=== PATIENT | female | born 1985 | race Caucasian/White ===

== ENCOUNTER 2024-11-17 06:16 | Day surgery (SDC) | payer OTHER, SELFPAY ==
--- NOTE | 2024-11-09 13:13 | HP.PCM.OB_ITS ---
History and Physical Date of Admission: 11/17/24 VIRTUAL VISIT HIstory and Physical This is a virtual visit using [employer] Zoom Video Visit. It required patient- provider interaction for the medical decision making as documented below. I have communicated my name and active licensure. The patient's identity and physical location were verified at the time of this visit. Either the patient or their legal representative personal service has been informed of the risks and benefits of -- and alternatives to -- treatment through a remote evaluation and consents to proceed with the evaluation remotely. ? Pre-Op History and Physical HPI: The patient is a 39 year old female presenting for pre-operative visit. She is scheduled for Hysteroscopy, D&C, myomectomy with symphion for AUB, submucosal fibroids, dysmenorrhea on 11/17/24 Procedure discussed along with risks, benefits and complications. Other alternatives discussed for management. Consent form signed? No. PAST MEDICAL HISTORY PAST MEDICAL HISTORY Diagnosis Date ? Anemia since childhood ? Asthma PFTs done in high school; was treated with Proventil HFA prn ? Chiari malformation type I (HCC) ? GERD (gastroesophageal reflux disease) ? Headache(784.0) ? Intramural, submucous, and subserous leiomyoma of uterus 08/29/2024 PAST SURGICAL HISTORY PAST SURGICAL HISTORY Procedure Laterality Date ? EGD TRANSORAL BIOPSY SINGLE/MULTIPLE 01/01/12 ? OPEN BIOPSY HEART ? PAST SURGICAL HISTORY OF 04/18/2015 Suboccipital craniectomy, C1 laminectomy, duraplasty, and tonsillar cauterization for decompression of Chiari malformation; use of intraoperative ultrasound; suboccipital cranioplasty for 3.0-cm defect CURRENT MEDICATIONS Current Outpatient Medications Medication Sig Dispense Refill ? soy protein (HEALTH SOURCE ORAL) Take by mouth. Hormonal support OTC magnesium, B vitamins herbal ? Norethindrone Acet-Ethinyl Est (MICROGESTIN ) 1.5-30 mg-mcg Take 1 tablet by mouth once daily. Take active pills only. Start a new pack every 3 weeks. 84 tablet 3 ? albuterol HFA (PROVENTIL HFA) 90 mcg/actuation inhaler Inhale 2 Puffs as instructed every 6 hours as needed for wheezing/shortness of breath. 1 Each 5 ? baclofen 20 mg tablet Take 1/2 to 1 tablet by mouth 3 times a day as needed for muscle spasms. 90 tablet 3 ? traZODone (DESYREL) 50 mg tablet Take 1-2 tablets by mouth daily at bedtime. 60 tablet 11 ? escitalopram oxalate (LEXAPRO) 20 mg tablet Take 1 tablet by mouth once daily. 90 tablet 3 ? hydrOXYzine HCl (ATARAX) 25 mg tablet Take 1 tablet by mouth once daily. 90 tablet 3 ? multivitamin tablet Take 1 tablet by mouth once daily. ? cholecalciferol, vitD3,/vit K2 (VITAMIN D3-VITAMIN K2) 250 mcg (10,000 unit)-45 mcg cap Take by mouth. ? OTSZMQQ-ZIHW-DVGEO-OREG-CAPRYL ORAL Take by mouth. ? fluticasone (FLONASE) 50 mcg/actuation nasal spray Use 1-2 Sprays in each nostril once daily. Rinse mouth after use. 1 Bottle 5 ? magnesium oxide (MAG-OX) 400 mg tablet Take 1 tablet by mouth once daily. 30 tablet 3 ? riboflavin, vitamin B2, (VITAMIN B-2) 100 mg tab Take 4 tablets by mouth once daily. 120 tablet 3 ? TENS unit and electrodes cmpk Per PT recommendations 1 Device 0 ? Ferrous Gluconate 324 mg (36 mg iron) tab Take 1 tablet by mouth once daily. No current facility-administered medications for this visit. ALLERGIES: Protonix [Pantoprazole Sodium] PERSONAL HISTORY: SOCIAL HISTORY Social History Tobacco Use ? Smoking status: Never ? Smokeless tobacco: Never Vaping Use ? Vaping status: Never Used Substance Use Topics ? Alcohol use: No ? Drug use: No FAMILY HISTORY: FAMILY HISTORY FAMILY HISTORY Problem Relation Age of Onset ? Hyperlipidemia Mother ? other (arryhtmia) Father ? other (gastroproesis) Sister TWIN SISTER ? other (Other) Sister tachycardia ? Breast Cancer Maternal Grandmother ? Uterine Cancer Maternal Grandmother ? Heart Attack Maternal Grandfather REVIEW OF SYMPTOMS: negative except as noted above PHYSICAL EXAMINATION: VITALS: Last menstrual period 03/11/2024. GENERAL: The patient is well nourished, well hydrated in no acute distress. , The patient is oriented to time, place, and person. NECK: full range of motion Indication Pelvic pain, midline Impression The uterus is anteverted and measures 95 mm x 58 mm x 61 mm. The myometrium is heterogenous. The endometrial thickness is 10.6 mm. The endometrium is irregular and contains a submucosal fibroid. 1. Anterior lower uterine segment intramural fibroid measures 21 mm x 18 mm x 21.. 2. Anterior submucous fibroid measures 26 mm x 27 mm x 32 mm. 3. Anterior right intramural fibroid measures 27 mm x 17 mm x 18 mm. 4. Anterior fundal right pedunculated fibroid measures 19 mm x 17 mm x 16 mm. 5. Anterior fundal right pedunculated fibroid measures 19 mm x 17 mm x 19 mm. The right ovary measures 28 mm x 24 mm x 18 mm. The left ovary measures 27 mm x 18 mm x 14 mm. There is trace free fluid visualized. Technique: Three dimensional imaging was created on a dedicated stand-alone 3D workstation with images created and archived, and supervised and reviewed by the interpreting physician utilizing images from a US Scan performed on 08/29/24. Recommendations Consider SIS for further evaluation of endometrial cavity if clinically indicated. Consider endometrial sampling. Fibroid uterus. Clinical correlation is recommended. IMPRESSION: 39yo female with Dysmenorrhea, fibroid uterus, AUB PLAN: Hysteroscopy, D&C, myomectomy with symphion Pt has been counseled on risks/benefits and alternatives of surgery including but not limited to anesthesia, bleeding, infection, injury to pelvic structures including bowel, bladder, ureters and vessels. Pt wishes to proceed with surgery at this time. Will sign consent day of surgery- consent was filled out and signed by myself All questions answered Pre and post op instructions reviewed I have reviewed and updated past medical and surgical history, medications and allergies
[2024-11-17] VITALS (11 sets, daily range): BP systolic 98–149; BP diastolic 79–91; PULSE 79–102; RESP 16; TEMP 36.2–36.9; O2SAT 95–100; BMI 37.4
[2024-11-17 06:43] LABS: Internal QC Validated? YES +Cl - CLEAR BKGD; Pregnancy, Urine Negative Negative
--- NOTE | 2024-11-17 07:03 | PRE.ANES_ITS ---
ASA Classification* ASA Classification ASA Classification: 3 Assessment & Plan Anesthesia* Anesthesia Assessment Anesthesia Assessment: Discussed sedation and/or anesthesia options, risks, benefits, and alternatives with patient/parents/legal guardian/POA. Questions invited. The patient/parents/legal guardian/POA seems to understand and agrees to proceed with anesthesia plan. Reviewed the physical assessment, medical history, allergy history and patient home medications list prior to surgery/procedure/anesthetic and documented any changes. Performed airway and anesthesia risk assessments. Anesthesia Type Anesthesia Type: MAC History Source History Obtained from:: Patient and Chart Anesthesia Focused Assessment* Temperature: 98.5 F Pulse Rate: 94 Blood Pressure: 149/91 Respiratory Rate: 16 Pulse Ox: 100 Oxygen Delivery Method: Room Air Airway Assessment Mouth opens: 2 cm Mallampati Score: IV Teeth Condition: Intact Neck Range of motion (ROM): Limited ROM (Slight decreased extension) Focused Labs Anesthesia Preop lab: CBC CHEMISTRY COAG Urine Test Negative Negative 11/17/24 06:25 Pre-Assessment Diagnosis/Proposed Procedure Planned Operative Procedure(s): HYSTEROSCOPY D&C MYOMECTOMY Anesthesia History 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 When Was Last Pacemaker Check QUESTION #4 FULL TEXT: You/Your Family Experience fever (hyperthermia) with Anesthesia Last Oral Intake Last Oral intake: Last Oral Intake NPO since 04:00 11/17/24 06:39 Meds taken in AM with sips of water? Meds patient instructed to take am of surgery Any additional information?: Yes NPO since: 04:00 (Patient had some water at 4 AM.) PONV PONV - streetcar repairer helper: PONV - streetcar repairer helper Female Yes 11/09/24 08:23 HX of Motion Sickness No 11/09/24 08:23 HX of N/V After Surgery No 11/09/24 08:23 Non-Smoker Yes 11/09/24 08:23 Duration of Surgery greater No 11/09/24 08:23 than 60 minutes Number of Risk Factors 2 11/09/24 08:23 PONV Score Moderate Risk 11/09/24 08:23 Height & Weight Height & Weight: Anesthesia: Height & Weight Height 5 ft 11/17/24 06:39 Weight: 87 kg 11/17/24 06:39 Body Mass Index (BMI) 37.4 11/17/24 06:39 Respiratory Assessment Respiratory Assessment - streetcar repairer helper: Respiratory Tract Infection Hx - streetcar repairer helper Hx Respiratory Tract Infection No 11/09/24 08:23 Any additional information?: Yes Hx Respiratory Tract Infection: Yes (Patient is recovering from the flu. Residual cough and runny nose.) STOP Sleep Apnea STOP Sleep Apnea - streetcar repairer helper: STOP Sleep Apnea - streetcar repairer helper Hx Hypertension No 11/09/24 08:23 Hx Sleep Apnea No 11/09/24 08:23 CPAP BIPAP Do you snore loudly (louder No 11/09/24 08:23 than talking or can be heard Do you often feel tired/ No 11/09/24 08:23 fatigued/ sleepy during daytime? Has anyone observed you stop No 11/09/24 08:23 breathing during sleep? STOP Results Negative 11/09/24 08:23 QUESTION #5 FULL TEXT : Do you snore loudly (louder than talking or can be heard through closed doors)? Tobacco Use History Tobacco Use History - streetcar repairer helper: Tobacco Use History - streetcar repairer helper Tobacco Use Smoking Status Never smoker 11/09/24 08:23 Hx Tobacco Use No 11/09/24 08:23 Years Smoking Packs Smoked per Day Smoking Cessation Date was within the last 15 years Hx Smoking Cessation Date Hx Smoking Cessation Counseling Hematologic Medial History Hematologic Hx - streetcar repairer helper: Hematologic Medical Hx - biological technical officer Hx of Blood Transfusion No 11/09/24 08:23 Hx of Transfusion in last 3 No 11/09/24 08:23 Months Date of Last Transfusion (if within last 3 months) Ever experience any problems No 11/09/24 08:23 with transfusion(s)? Specify any problems Hx of Preganancy in last 3 No 11/09/24 08:23 Months Nurse Filling Out Transfusion DSCHRIBER 11/09/24 08:23 & Questions: Date: 11/09/24 11/09/24 08:23 Time: 08:24 11/09/24 08:23 Patient unable to answer at this time (ie. confused, unrespo /Reproduction History /Reproductive History - streetcar repairer helper: /Reproductive Hx- streetcar repairer helper Hx Now No 11/09/24 08:23 Gestational Age (in weeks): EDC: Hx Hx Para Hx Section SAB No 11/09/24 08:23 PFSH Medical History Wears glasses Depression Anxiety Low iron Back pain Syncope Gastric reflux Non-smoker Asthma Chiari malformation type I Home Medications ?Medication ?Instructions ?Recorded ?Last Taken ?Type albuterol sulfate 90 mcg/actuation 2 puff inhalation Q6H PRN PRN 11/09/24 Unknown History aerosol inhaler wheezing escitalopram oxalate 20 mg tablet 20 mg PO DAILY 11/09/24 Unknown History famotidine 20 mg tablet (Pepcid AC) 20 mg PO DAILY PRN GERD 11/09/24 Unknown History ferrous sulfate 324 mg (65 mg 324 mg PO DAILY 11/09/24 Unknown History iron) tablet,delayed release hydroxyzine HCl 25 mg tablet 25 mg PO DAILY 11/09/24 Unknown History norethindrone acetate 1.5 1 tab PO DAILY 11/09/24 Unknown History mg-ethinyl estradiol 30 mcg tablet (Microgestin) Allergy/AdvReac Type Severity Reaction Status Date / Time pantoprazole (From Protonix) AdvReac Intermediate Nausea Verified 11/17/24 06:36 Surgical History History of esophagogastroduodenoscopy (EGD) History of surgical closure of patent foramen ovale (PFO) Hx of brain surgery Social History Smoking Status: Never smoker Review of Systems (Anesthesia) ROS Narrative System reviewed and no additional complaints, except as documented.
--- NOTE | 2024-11-17 07:30 | EMB_PTH ---
PATIENT: VIOLA ALFARO [place] [facility] [id number] AGE/SX: 39/F ROOM: RE11/17/[address]: Dr. Teagan Ragland, MDDOB: 1985 BED: DIS: 11/17/2024 SPEC #: [id number] RECD: 11/17/24 10:41 STATUS: STEFANIE RESherri #: [id number] CAESAR: 11/17/24 07:[address]: Teagan Ragland DEPT: SURGICAL PATHOLOGY RECD BY: Carmela Guerrero ENTERED: 11/17/24 11:47 SP TYPE: ENDOM BX/C OTHR DR: Dr. Leyla Solorzano MD Tissues: Endometrium, NOS Procedures: Surgery Specimen Level IV HEADER OPERATION: D&C, polypectomy PRE-OP DIAGNOSIS: Abnormal uterine bleeding, submucosal fibroids, dysmenorrhea TISSUE SUBMITTED: Submucosal fibroid, endometrial curettings, endometrial polyp MICROSCOPIC DIAGNOSIS Submucosal fibroid, endometrial curetting and endometrial polyp, D&C and polypectomy: Fragments of leiomyoma. Dyssynchronous endometrium consisting of proliferative endometrium, mildly disordered proliferative endometrium and weakly secretory endometrium. See comment. 11/20/2024 COMMENT A few fragments of endometrial tissue show polypoid appearance, may represent fragments of benign endometrial polyp. MICROSCOPIC DESCRIPTION Slides are reviewed. GROSS DESCRIPTION Received in fixative is one container labeled with the patient's name and designated Submucosal fibroid, endometrial curetting and endometrial polyp. The specimen consists of multiple fragments of indurated tissue measuring in aggregate 7.5 x 3.0 x 0.6cm. The entire specimen is submitted in six cassettes. 11/17/2024 TC:1 CPT:83076
--- NOTE | 2024-11-17 08:13 | OP.PCM_ITS ---
Operative Report (Standard) Operative Information Date of Procedure: 11/17/24 Pre-Operative Diagnosis: AUB, Submucosal fibroid, dysmenorrhea Post-Operative Diagnosis: same, endometrial polyps Surgery/Procedure Performed: hysteroscopy, D&C, Polypectomy, Myomectomy hospice care sales consultant: No Type of Anesthesia: MAC RN Documented Start/Stop Times: Operation Date: 11/17/24 07:30 Case Time Into Pre-Op 11/17/24 06:22 Out of Pre-Op 11/17/24 07:21 Anesthesia Start 11/17/24 07:26 Into Room 11/17/24 07:26 Procedure Start 11/17/24 07:40 Procedure End 11/17/24 08:13 Procedure Start Time: 07:40 Procedure Stop Time: 08:13 Select all DRAINS/GRAFTS/IMPLANTS that apply: None Estimated Blood Loss: <5cc Specimen collected: Yes Description of specimen(s) removed: endometrial curettings, endometrial polyps, submucosal fibroids Description of surgery: Informed consent was obtained the patient was taken the operating room she was placed in supine position. She was given anesthesia. She was then placed in the [facility] where she was prepped and draped in the normal sterile fashion. At this time the open reese was placed in the posterior fornix of vagina. Single-tooth tenaculum was used to gently grasp the anterior lip the cervix. At this time the uterine cavity was sounded to approximately 7 cm. Gentle dilatation was performed once adequate dilatation of the cervix was achieved the hysteroscope using normal saline as a distention medium was placed. Tubal ostia visualized. multiple submucosal fibroids and endometrial polyps noted- Symphion resecting device used to obtain endometrial curettings and to perform polypectom and myomectomy. the largest fibroid was approximately 3cm - appeared that i was able to remove it to the base. Tissue will be sent to pathology for evaluation. cavity remained intact. there was a lot of fluid leaking to the bag and onto the floor from the cervix. estimated fluid deficit 1250cc. Tenaculum removed. Good hemostasis. Instrument, lap count correct x 2. Vaginal Sweep was negative. Surgical Findings: multiple submucosal fibroids- largest approximately 3cm. multiple endometrial polyps Complications Complications: No Admit VTE Documentation VTE Present on Admission: Yes VTE Mechan Device Prophylaxis: SCD's VTE Pharm Prophylaxis ordered?: No
--- NOTE | 2024-11-17 08:19 | PCM.DC ---
Discharge Instructions Diet Discharge Diet: No restrictions DC O2, CPAP, BIPAP needs Home O2 Discharge instructions: No Dressing / Incision May resume sexual activity in: 1 week Dressing / Incision Call your doctor if you observe: Fever of 101 or Higher, Inability to urinate, Using more than 1 pad per hour and Uncontrolled pain Follow Up Care Please Follow Up With: Teagan Ragland MD When: not needed unless concerns- please call [phone], We will call with pathology results Test Results: Test results from this visit will be discussed in further detail at your follow-up appointment, if applicable. Discharge Plan Admission Attending Provider: Teagan Ragland Primary Care Provider: Leyla Solorzano Instructions Print Language: Moroccan Discharge Orders/Prescriptions Prescriptions: No Action hydroxyzine HCl 25 mg tablet 25 mg PO DAILY escitalopram oxalate 20 mg tablet 20 mg PO DAILY ferrous sulfate 324 mg (65 mg iron) tablet,delayed release (DR/EC) 324 mg PO DAILY norethindrone ac-eth estradiol [Microgestin 1.5/30 (21)] 1.5-30 mg-mcg tablet 1 tab PO DAILY albuterol sulfate 90 mcg/actuation HFA aerosol inhaler 2 puff INHALATION Q6H PRN PRN (Reason: wheezing) famotidine [Pepcid AC] 20 mg tablet 20 mg PO DAILY PRN (Reason: GERD) Referrals / Follow Up: Leyla Solorzano MD [Primary Care Provider] - Disposition Disposition (needs filled in before D/C Order can be placed): Home, Self Care
--- NOTE | 2024-11-17 08:40 | PCM.POST.ANE ---
Anesthesia: Postop Eval I Current Vital Signs Temperature: 97.8 F Pulse Rate: 88 Blood Pressure: 136/84 Respiratory Rate: 16 Pulse Ox: 97 Assessment Airway patent: Yes Spontaneous unlabored respirations: Yes nausea: No Vomiting: No Anesthesia Complication: No Fluid Hydration Crystalloid volume administer (ml): 0 Total IV fluid infused: 0 Progress Note Anesthesia document: Postop Eval 1 completed: Yes
[2024-11-17] MEDS: 0.9% Normal Saline (500mL Bag) 500 ML 15 ML IV (09:20)
--- NOTE | 2024-11-17 09:40 | PCM.POSTANE2 ---
Anesthesia Postop Eval I Sum Postop Eval Completion status Anesthesia document: Postop Eval 1 completed: Yes Anesthesia Postop Eval I Summary Anesthesia Postop Eval I Summary: Anesthesia Postop Eval I: Assessment Summary Airway patent Yes 11/17/24 10:07 DIRECTOR OF WEB MARKETING.CSIR Spontaneous unlabored Yes 11/17/24 10:07 DIRECTOR OF WEB MARKETING.CSIR respirations Mental status nausea No 11/17/24 10:07 DIRECTOR OF WEB MARKETING.CSIR Vomiting No 11/17/24 10:07 DIRECTOR OF WEB MARKETING.CSIR Anesthesia Postop Eval I: Fluid Summary Crystalloid volume administer 0 11/17/24 10:07 DIRECTOR OF WEB MARKETING.CSIR (ml) Colloids volume administered ( ml) Blood Product volume administered (ml) Total IV fluid infused 0 11/17/24 10:07 DIRECTOR OF WEB MARKETING.CSIR Anesthesia Postop Eval I: Summary Notes Anesthesia Complication No 11/17/24 10:07 DIRECTOR OF WEB MARKETING.CSIR Anesthesia Complication Comment: Post-operative progress note Anesthesia: Postop Eval II Evaluation Mental status: Awake and Calm Pain Level: 2 nausea: No Vomiting: No
--- NOTE | 2024-11-17 09:40 | POSTOPAN2_ITS ---
Anesthesia Postop Eval I Sum Postop Eval Completion status Anesthesia document: Postop Eval 1 completed: Yes Anesthesia Postop Eval I Summary Anesthesia Postop Eval I Summary: Anesthesia Postop Eval I: Assessment Summary Airway patent Yes 11/17/24 10:07 HOG MAN.CSIR Spontaneous unlabored Yes 11/17/24 10:07 HOG MAN.CSIR respirations Mental status nausea No 11/17/24 10:07 HOG MAN.CSIR Vomiting No 11/17/24 10:07 HOG MAN.CSIR Anesthesia Postop Eval I: Fluid Summary Crystalloid volume administer 0 11/17/24 10:07 HOG MAN.CSIR (ml) Colloids volume administered ( ml) Blood Product volume administered (ml) Total IV fluid infused 0 11/17/24 10:07 HOG MAN.CSIR Anesthesia Postop Eval I: Summary Notes Anesthesia Complication No 11/17/24 10:07 HOG MAN.CSIR Anesthesia Complication Comment: Post-operative progress note Anesthesia: Postop Eval II Evaluation Mental status: Awake and Calm Pain Level: 2 nausea: No Vomiting: No
[2024-11-17] MEDS: HYDROcodone Bitartrate/Apap 5/325 Tablet PO (09:49)
== END 2024-11-17 10:58 | disposition home or self-care (01) ==
LOC: SDC 06:20 → AC 06:23
PROVIDERS: Anesthesiology; PCP Internal Medicine; Referring Provider Obstetrics & Gynecology; Visit Provider Obstetrics & Gynecology
PROC: 0UB98ZZ Excision of Uterus, Via Natural or Artificial Opening Endoscopic (ICD-10-PCS; CPT 58558; principal; 2024-11-17 07:15)
DX: D25.1 Intramural leiomyoma of uterus (principal); N93.9 Abnormal uterine and vaginal bleeding, unspecified; N94.6 Dysmenorrhea, unspecified; N84.0 Polyp of corpus uteri; J45.909 Unspecified asthma, uncomplicated; K21.9 Gastro-esophageal reflux disease without esophagitis; Z79.899 Other long term (current) drug therapy; F32.A Depression, unspecified
CPT/HCPCS: 58558; 00952; 81025; 88305; A4216; J2405